=== PATIENT | female | born 1995 | race Two or more races ===

== ENCOUNTER 2017-06-11 02:37 | Emergency (ER) | payer SELFPAY ==
[2017-06-11 02:48] VITALS: BP 126/78; PULSE 97; RESP 16; TEMP 98.1; O2SAT 100
--- NOTE | 2017-06-11 02:55 | ED PDOC ---
HPI: Psych/Substance Abuse Time Seen by Provider: 06/11/17 02:49 Chief Complaint (Nursing): Alcohol Ingestion Chief Complaint (Provider): etoh History Per: Patient Additional Complaint(s): 21-year-old female presents via ambulance acutely intoxicated. A bystander saw the patient was lying down on the street and ambulance was called. Patient admits to drinking this evening but offers no complaints. Past Medical History Reviewed: Historical Data, Nursing Documentation, Vital Signs Vital Signs: Last Vital Signs Temp 98.1 F 06/11/17 02:46 Pulse 97 H 06/11/17 02:46 Resp 16 06/11/17 02:46 BP 126/78 06/11/17 02:46 Pulse Ox 100 06/11/17 02:46 - Medical History PMH: No Chronic Diseases - Surgical History Surgical History: No Surg Hx - Family History Family History: States: No Known Family Hx - Living Arrangements Living Arrangements: Alone - Social History Current smoker - smoking cessation education provided: No Alcohol: Social Drugs: Denies - Allergies Allergies/Adverse Reactions: Allergies Allergy/AdvReac Type Severity Reaction Status Date / Time No Known Allergies Allergy Verified 06/11/17 02:46 Review of Systems ROS Statement: Except As Marked, All Systems Reviewed And Found Negative Psych: Positive for: Other (etoh) Physical Exam - Reviewed Nursing Documentation Reviewed: Yes Vital Signs Reviewed: Yes - Physical Exam Appears: Positive for: Well, Non-toxic, No Acute Distress Head Exam: Positive for: ATRAUMATIC Skin: Negative for: Rash Eye Exam: Positive for: Normal appearance Cardiovascular/Chest: Positive for: Regular Rate, Rhythm Respiratory: Positive for: Normal Breath Sounds Neurologic/Psych: Positive for: Alert, Other (Intoxicated, answers questions appropriately) - ECG O2 Sat by Pulse Oximetry: 100 Pulse Ox Interpretation: Normal Medical Decision Making Medical Decision Makin-year-old intoxicated female Plan: BAL Glucose POC: 111 ED OBSERVATION Date of observation admission: 06/11/17 Time of observation admission: 03:00 - Observation admission statement Patient is being placed in observation because:: ETOH - Goals of Observation Goals of observation are:: Monitor patient while acutely intoxicated, pending sobriety - Progress Note Progress Note: 06/11/17 03:39 BAL is 293, patient is asleep, arousable, vital signs stable 06/11/17 05:11 Patient is asleep, easily aroused, vital signs are stable 06/11/17 6:00 Patient is awake and alert, with steady gait, stable for discharge. Disposition - Clinical Impression Clinical Impression: Alcohol intoxication - Patient ED Disposition Is Patient to be Admitted: No Counseled Patient/Family Regarding: Diagnosis, Need For Followup - Disposition Referrals: [facility] [place] [Outside] Disposition: Routine/Home Disposition Time: 06:00 Condition: STABLE Instructions: Alcohol Intoxication (ED) Forms: [employer] ([place])
== END 2017-06-11 06:29 | disposition home or self-care (01) ==
LOC: H.ER 02:37
DX: F10.129 Alcohol abuse with intoxication, unspecified (principal)
CPT/HCPCS: 82948; 99282; G0480